=== PATIENT | male | born 1980 | race Caucasian/White ===

== ENCOUNTER 2019-05-13 16:33 | Emergency (ER) | payer SELFPAY ==
[2019-05-13 17:21] VITALS: PULSE 68
[2019-05-13 17:28] VITALS: BP 142/104
[2019-05-13] MEDS ORDERED: Lidocaine 1% 10 ML MDV INJECT ONE (17:51)
--- NOTE | 2019-05-13 18:42 | EDM.PDOC ---
ED HPI GENERAL MEDICAL PROBLEM - General Chief Complaint: Laceration Stated Complaint: THUMB LAC Time Seen by Provider: 05/13/19 17:18 Source of Information: Reports: Patient History Limitations: Reports: No Limitations - History of Present Illness INITIAL COMMENTS - FREE TEXT/NARRATIVE: Patient is a 38-year-old male who presents with complaints of a laceration to his left thumb. He states that he was cleaning a deer and cut his thumb with a knife. States his last tetanus vaccination was 3 years ago. - Related Data Allergies Allergy/AdvReac Type Severity Reaction Status Date / Time No Known Allergies Allergy Verified 05/13/19 17:21 Past Medical History - Past Health History Medical/Surgical History: Denies Medical/Surgical History Social & Family History - Tobacco Use Smoking Status *Q: Current Every Day Smoker Years of Tobacco use: 24 Packs/Tins Daily: 1 - Caffeine Use Caffeine Use: Reports: Coffee, Energy Drinks - Alcohol Use Days Per Week of Alcohol Use: 1 Number of Drinks Per Day: 2 Total Drinks Per Week: 2 - Recreational Drug Use Recreational Drug Use: No ED ROS GENERAL - Review of Systems Review Of Systems: See Below Constitutional: Reports: No Symptoms HEENT: Reports: No Symptoms Respiratory: Reports: No Symptoms Cardiovascular: Reports: No Symptoms Endocrine: Reports: No Symptoms GI/Abdominal: Reports: No Symptoms : Reports: No Symptoms Musculoskeletal: Reports: No Symptoms Skin: Reports: Other (left thumb laceration) Neurological: Reports: No Symptoms Psychiatric: Reports: No Symptoms Hematologic/Lymphatic: Reports: No Symptoms Immunologic: Reports: No Symptoms ED EXAM, SKIN/RASH Exam: See Below Exam Limited By: No Limitations General Appearance: Alert, WD/WN, No Apparent Distress Respiratory/Chest: No Respiratory Distress, Lungs Clear, No Accessory Muscle Use , Chest Non-Tender Cardiovascular: Normal Peripheral Pulses, Regular Rate, Rhythm, No Murmur Neurological: Alert, Oriented, Normal Cognition Psychiatric: Normal Affect, Normal Mood Skin: Warm, Dry, Other (1 cm laceration to volar aspect of left thumb) ED SKIN PROCEDURES - Laceration/Wound Repair Left Ventral Digit - 1st (Thumb) Appearance: Subcutaneous, Clean Distal NVT: Neuro & Vascular Intact Anesthetic Type: Local Local Anesthesia - Lidocaine (Xylocaine): 1% Plain Local Anesthetic Volume: 1cc Skin Prep: Chlorhexidine (Hibiciens), Providone-Iodine (Betadine) Exploration/Debridement/Repair: Wound Explored, No Foreign Material Found Closed with: Sutures Lac/Wound length In cm: 1 Suture Size: 4-0 # of Sutures: 3 Suture Type: Nylon Sterile Dressing Applied: Nurse Tetanus Status Addressed: Yes Complications: No Course - Vital Signs Last Recorded V/S: Last Vital Signs Temp 97.6 F 05/13/19 17:16 Pulse 68 05/13/19 17:16 Resp BP 142/104 H 05/13/19 17:27 Pulse Ox 98 05/13/19 17:16 - Orders/Labs/Meds Meds: Medications Discontinued Medications Generic Name Dose Route Start Last Admin Trade Name Rosemary PRN Reason Stop Dose Admin Lidocaine HCl 10 ml 05/13/19 17:51 Xylocaine 1% INJECT 05/13/19 17:52 ONETIME ONE - Re-Assessments/Exams Free Text/Narrative Re-Assessment/Exam: 05/13/19 18:40 laceration to the volar aspect of left thumb closed using sterile technique. See procedure notes. Patient is up-to-date on his tetanus vaccination. States was approximately 3 years ago when he had it completed. Discharge instructions as noted. Departure - Departure Time of Disposition: 18:42 Disposition: Home, Self-Care 01 Condition: Good Clinical Impression: Laceration - Discharge Information *PRESCRIPTION DRUG MONITORING PROGRAM REVIEWED*: No *COPY OF PRESCRIPTION DRUG MONITORING REPORT IN PATIENT KAY: No Instructions: Laceration Care, Adult, [id number] Referrals: PCP,None [Primary Care Provider] - Forms: ED Department Discharge Additional Instructions: You were seen in the emergency department tonight for a 1 cm laceration to your left thumb. The wound was cleansed and closed with 3 sutures. The sutures should stay intact for 7 days. After that time they may be removed at either the [facility] or the [facility]. The wound should be kept clean and dry. Wash with regular soap and water twice daily and then pat dry. If there is a chance that the wound may become contaminated, cover it with a Band-Aid. Otherwise it may be left open to air. Watch for signs of infection including redness, swelling, or purulent drainage. If these should occur please follow-up with your primary care provider or return to the emergency department.
== END 2019-05-13 18:50 | disposition home or self-care (01) ==
LOC: JD.ED 16:33
DX: S61.012A Laceration without foreign body of left thumb without damage to nail, initial encounter (principal); F17.210 Nicotine dependence, cigarettes, uncomplicated; W26.0XXA Contact with knife, initial encounter; Y93.G9 Activity, other involving cooking and grilling
CPT/HCPCS: 12001; 99282; J2001

== ENCOUNTER 2025-02-08 13:58 | Emergency (ER) | payer BC ==
[2025-02-08 14:52] VITALS: BP 156/114; PULSE 90
== END 2025-02-08 14:52 | disposition home or self-care (01) ==
LOC: JD.ED 13:58
DX: I10 Essential (primary) hypertension (principal); F17.210 Nicotine dependence, cigarettes, uncomplicated; Z79.899 Other long term (current) drug therapy
CPT/HCPCS: 99283